=== PATIENT | male | born 1995 | race Caucasian/White ===

== ENCOUNTER 2018-05-06 07:18 | Emergency (ER) | payer BC, OTHER ==
[~2018-05-06] VITALS: Ht 162.6 cm; Wt 72.6 kg
[2018-05-06 07:22] VITALS: BP_SYST 142
[2018-05-06] MEDS ORDERED: NACL 0.9% 1,000 ML IV ONE (07:45)
[2018-05-06] MEDS ORDERED: KETOROLAC TROMETHAMINE 30 MG VIAL IVP ONE (07:45)
[2018-05-06] MEDS ORDERED: ONDANSETRON HCL 4 MG/2 ML VIAL IVP ONE ×2 (08:00→08:45)
[2018-05-06] MEDS ORDERED: ONDANSETRON HCL 4 MG/2 ML VIAL ONE (08:09)
[2018-05-06 08:43] LABS: CALCIUM 9.8 mg/dL (8.4-11.0); CREATININE 1.22 mg/dL (0.55-1.30); POTASSIUM 3.3 mmol/L (3.5-5.1)
[2018-05-06] MEDS ORDERED: fentaNYL CITRATE/PF 100 MCG/2 ML AMP IVP ONE (08:45)
[2018-05-06 09:01] LABS: HEMOGLOBIN 14.8 g/dL (14.0-18.0); MEAN CORPUSCULAR HEMOGLOBIN 25 pg (27-31); MEAN CORPUSCULAR HGB CONC 32 % (32-36); MEAN CORPUSCULAR VOLUME 78 fL (79.0-98.0); PLATELET COUNT (AUTO) 203 K/uL (130-430); RED BLOOD CELL COUNT(AUTO) 6.04 MIL/uL (4.2-6.2); RED CELL DISTRIBUTION WIDTH 13.3 % (9.0-15.0); WHITE BLOOD COUNT (AUTO) 7.2 K/uL (4.8-10.8)
[2018-05-06 09:46] LABS: ALBUMIN 4.5 g/dL (3.4-4.8); TOTAL BILIRUBIN 0.7 mg/dL (0.0-1.0)
[2018-05-06 10:05] VITALS: BP_SYST 126
== END 2018-05-06 10:05 | disposition home or self-care (01) ==
LOC: SED 07:18
DX: N23 Unspecified renal colic (principal)
CPT/HCPCS: 36415; 74176; 80053; 85025; 96361; 96374; 96375; 99284; J1885; J2405; J3010; J7030